=== PATIENT | male | born 1985 | race Caucasian/White ===

== ENCOUNTER 2022-07-09 11:11 | Emergency (ER) | payer SELFPAY ==
[~2022-07-09] VITALS: Ht 167.6 cm; Wt 88.0 kg
[2022-07-09 11:36] VITALS: BP 125/76
--- NOTE | 2022-07-09 11:42 | NUR ---
PT TO LOBBY. AWAIT ROOM ASSIGNMENT. NAD.
--- NOTE | 2022-07-09 11:56 | NUR ---
PT. AMB. TO BED WITH NO DIFFICULTY, NO ACUTE DISTRESS.
[2022-07-09] MEDS ORDERED: CIPR7.5S RIGHT EAR (12:15)
[2022-07-09] MEDS ORDERED: IBUP-2213 PO (12:15)
[2022-07-09] MEDS ORDERED: KETOROLAC 30 MG/ML VIAL IM ONE (12:15)
[2022-07-09] MEDS ORDERED: AMOX500C25 PO (12:15)
--- NOTE | 2022-07-09 12:15 | NUR ---
36 YEARS OLD MALE PRESENTS TO ER C/O RIGHT EAR PAIN FOR 2 DAYS, NO SWELLING NO REDNESS, NO SORETHROAT.
[2022-07-09 12:52] VITALS: BP 130/70
--- NOTE | 2022-07-09 12:54 | NUR ---
PATIENT CONDITION STABLE TOLERATED IM TORADOL D/C HOME WITH INSTRUCTIONS AFTERCARE REVIEWED UNDERSTOOD LEFT ER AMBULATORY WITH STEADY GAIT.
== END 2022-07-09 12:52 | disposition home or self-care (01) ==
LOC: MED 11:11
DX: H60.91 Unspecified otitis externa, right ear (principal); Z79.899 Other long term (current) drug therapy
CPT/HCPCS: 96372; 99283; J1885

== ENCOUNTER 2022-07-11 13:06 | Emergency (ER) | payer MEDICAID ==
[~2022-07-11] VITALS: Ht 177.8 cm; Wt 93.0 kg
[~2022-07-11 13:06] MED LIST: AMOX500C25 PO; CIPR7.5S RIGHT EAR; IBUP-2213 PO
[2022-07-11 13:24] VITALS: BP 134/68
[2022-07-11] MEDS ORDERED: KETOROLAC 60 MG/2 ML VIAL IM ONE (13:35)
[2022-07-11] MEDS ORDERED: KETOROLAC 30 MG/ML VIAL IVP ONE (13:45)
[2022-07-11 13:56] VITALS: BP 130/64
[2022-07-11 14:08] LABS: BASOPHILS # (AUTO) 0.1 K/uL (0.00-0.22); BASOPHILS % (AUTO) 0.7 % (0.0-2.0); EOSINOPHILS # (AUTO) 0.1 K/uL (0-0.4); EOSINOPHILS % (AUTO) 1.1 % (0.0-4.0); HEMATOCRIT 43.4 % (36-52); HEMOGLOBIN 14.6 g/dL (12.0-18.0); LYMPHOCYTES # (AUTO) 2.5 K/uL (2.0-11.5); LYMPHOCYTES % (AUTO) 23.6 % (20.5-51.1); MEAN CORPUSCULAR HEMOGLOBIN 30 pg (27-31); MEAN CORPUSCULAR HGB CONC 34 g/dL (33-37); MEAN CORPUSCULAR VOLUME 89.2 fL (80-94); MONOCYTES % (AUTO) 9.4 % (1.7-9.3); NEUTROPHILS # (AUTO) 6.8 K/uL (1.8-7.7); NEUTROPHILS % (AUTO) 65.2 % (42.2-75.2); PLATELET COUNT (AUTO) 218 K/uL (140-450); RED BLOOD CELL COUNT(AUTO) 4.86 MIL/uL (4.20-6.10); RED CELL DISTRIBUTION WIDTH 13.6 % (11.6-13.7); WHITE BLOOD COUNT (AUTO) 10.5 K/uL (4.8-10.8)
[2022-07-11 14:25] LABS: ANION GAP 9.3 (8-16); CARBON DIOXIDE 27.9 mmol/L (21-32); CREATININE 0.9 mg/dL (0.6-1.3); POTASSIUM 4.2 mmol/L (3.5-5.1)
[2022-07-11] MEDS ORDERED: DEXAMETHASONE 10 MG/ML VIAL IVP ONE (15:00)
[2022-07-11] MEDS ORDERED: AMOX1TAB8 PO (15:19)
[2022-07-11] MEDS ORDERED: CIPR500T4 PO (15:27)
[2022-07-11] MEDS ORDERED: ACET-10509 PO (15:28)
[2022-07-11] MEDS ORDERED: IBUP-2213 PO (15:28)
--- NOTE | 2022-07-11 15:35 | NUR ---
Patient discharged with v/s stable. Written and verbal after care instructions given and explained. Patient alert, oriented and verbalized understanding of instructions. Ambulatory with steady gait. All questions addressed prior to discharge. ID band removed. Patient advised to follow up with PMD. Rx of AUGMENTIN, CIPRO given. Patient educated on indication of medication including possible reaction and side effects. Opportunity to ask questions provided and answered.
== END 2022-07-11 15:35 | disposition home or self-care (01) ==
LOC: MED 13:06
DX: H66.91 Otitis media, unspecified, right ear (principal); H60.91 Unspecified otitis externa, right ear; R07.0 Pain in throat; Z79.899 Other long term (current) drug therapy
CPT/HCPCS: 36415; 70487; 80048; 85025; 96372; 96374; 99285; J1100; J1885; Q9967

== ENCOUNTER 2022-07-14 17:11 | Emergency (ER) | payer MEDICAID ==
[~2022-07-14] VITALS: Ht 170.2 cm; Wt 90.7 kg
[~2022-07-14 17:11] MED LIST changes: +ACET-10509 PO; +AMOX1TAB8 PO; +CIPR500T4 PO
[2022-07-14 17:56] VITALS: BP 110/72
--- NOTE | 2022-07-14 19:53 | NUR ---
Patient discharged with v/s stable. Written and verbal after care instructions given and explained. Patient verbalized understanding. Ambulatory with steady gait. All questions addressed prior to discharge. Advised to follow up with PMD.
--- NOTE | 2022-07-14 19:54 | NUR ---
EAR CULTURE COLLECTED AND SENT TO LAB
== END 2022-07-14 19:53 | disposition home or self-care (01) ==
LOC: MED 17:11
DX: H60.91 Unspecified otitis externa, right ear (principal); Z79.899 Other long term (current) drug therapy; Z79.2 Long term (current) use of antibiotics; Z79.1 Long term (current) use of non-steroidal anti-inflammatories (NSAID)
CPT/HCPCS: 87070; 99283

== ENCOUNTER 2023-03-13 15:51 | Emergency (ER) | payer MEDICAID ==
[~2023-03-13] VITALS: Ht 172.7 cm; Wt 81.6 kg
[2023-03-13 16:16] VITALS: BP 123/74; PULSE 107; RESP 18; TEMP 97; O2SAT 98
[2023-03-13] MEDS ORDERED: METH4TAB1 PO (17:33)
[2023-03-13] MEDS ORDERED: GABA300C PO (17:33)
[2023-03-13] MEDS ORDERED: ACYC400T14 PO (17:33)
[2023-03-13] MEDS ORDERED: IBUP-2213 PO (17:34)
== END 2023-03-13 17:48 | disposition home or self-care (01) ==
LOC: MED 15:51
DX: N64.4 Mastodynia (principal); B02.9 Zoster without complications; Z79.899 Other long term (current) drug therapy
CPT/HCPCS: 71101; 99283

== ENCOUNTER 2023-06-14 05:35 | Emergency (ER) | payer MEDICAID, OTHER ==
[~2023-06-14] VITALS: Ht 170.2 cm; Wt 90.7 kg
[~2023-06-14 05:35] MED LIST changes: +ACYC400T14 PO; +GABA300C PO; +METH4TAB1 PO
[2023-06-14 05:41] VITALS: BP 125/62; PULSE 87; RESP 16; TEMP 97.9; O2SAT 98
[2023-06-14] MEDS ORDERED: NAPR-337 PO (05:59)
[2023-06-14] MEDS ORDERED: OFLO5SOL27 RIGHT EAR (05:59)
[2023-06-14] MEDS ORDERED: AMOX500C25 PO (05:59)
[2023-06-14] MEDS: IBUPROFEN 600 MG TAB PO ONE (06:03)
[2023-06-15] MEDS ORDERED: ACET-503 PO (00:54)
[2023-06-15] MEDS ORDERED: IBUP-2213 PO (00:54)
== END 2023-06-14 06:07 | disposition home or self-care (01) ==
LOC: MED 05:35
DX: H60.91 Unspecified otitis externa, right ear (principal); Z79.1 Long term (current) use of non-steroidal anti-inflammatories (NSAID); Z79.899 Other long term (current) drug therapy
CPT/HCPCS: 99283

== ENCOUNTER 2023-06-14 22:23 | Emergency (ER) | payer OTHER ==
[~2023-06-14] VITALS: Ht 162.6 cm; Wt 90.7 kg
[~2023-06-14 22:23] MED LIST changes: +NAPR-337 PO; +OFLO5SOL27 RIGHT EAR
[2023-06-14 22:56] VITALS: BP 113/71; PULSE 92; RESP 16; TEMP 97.4; O2SAT 99
[2023-06-15] MEDS ORDERED: ACET-503 PO (00:54)
[2023-06-15] MEDS ORDERED: IBUP-2213 PO (00:54)
[2023-06-15] MEDS: KETOROLAC 60 MG/2 ML VIAL IM ONE (00:58)
== END 2023-06-15 01:10 | disposition home or self-care (01) ==
LOC: MED 22:23
DX: H60.91 Unspecified otitis externa, right ear (principal); Z79.1 Long term (current) use of non-steroidal anti-inflammatories (NSAID); Z79.899 Other long term (current) drug therapy
CPT/HCPCS: 96372; 99283; J1885